=== PATIENT | female | born 1990 | race American Indian/Alaskan Native ===

== ENCOUNTER 2019-09-17 22:15 | Emergency (ER) | payer MEDICAID ==
[2019-09-17] MEDS ORDERED: ACETAMINOPHEN 500 MG TAB PO ONE (22:48)
--- NOTE | 2019-09-17 22:52 | Emergency Department Report ---
ED Female HPI - General Chief complaint: Abdominal Pain Stated complaint: LOWER ABD PAIN LT SIDE 17 WKS PREG Time Seen by Provider: 09/17/19 22:48 Source: patient Mode of arrival: Ambulatory Limitations: No Limitations - History of Present Illness Initial comments: Mrs. Saavedra is a 28-year-old female who presents with left lower quadrant pain sharp severe since this morning. She is currently 17 weeks 0 days . Her estimated date of delivery is 02/25/2020. Sharp pain. No change with movement. It is episodic. Last seconds at a time. She took laxative. She thought it was constipation. However the pain is sharp. She is concerned about her baby. She is followed at [facility]. Complaint: pelvic pain, other (left lower quadrant groin pain) -: Gradual, This morning Location: other (left lower quadrant to the left groin) Severity: moderate, severe Severity scale (0 -10): 7 Quality: sharp Consistency: intermittent Improves with: none Worsens with: none Are you Now?: Yes Associated Symptoms: denies other symptoms. denies: vaginal discharge, vaginal bleeding - Related Data Allergies Allergy/AdvReac Type Severity Reaction Status Date / Time No Known Allergies Allergy Unverified 09/17/19 23:22 ED Review of Systems ROS: Stated complaint: LOWER ABD PAIN LT SIDE 17 WKS PREG Other details as noted in HPI Comment: All other systems reviewed and negative Constitutional: denies: fever, malaise Respiratory: denies: shortness of breath Cardiovascular: denies: chest pain Gastrointestinal: denies: nausea, vomiting, diarrhea Genitourinary: denies: urgency, dysuria, frequency, abnormal menses Skin: denies: rash, lesions ED Past Medical Hx - Past Medical History Previous Medical History?: Yes Hx Diabetes: Yes (Type 1) - Surgical History Past Surgical History?: No - Social History Smoking Status: Never Smoker Substance Use Type: None ED Physical Exam - General Limitations: No Limitations General appearance: alert, in no apparent distress, other (rubbing lower abdomen appears uncomfortable) - Head Head exam: Present: atraumatic, normocephalic - Eye Eye exam: Present: normal appearance - ENT ENT exam: Present: mucous membranes moist - Neck Neck exam: Present: normal inspection - Respiratory Respiratory exam: Present: normal lung sounds bilaterally. Absent: respiratory distress, wheezes, rales, rhonchi - Cardiovascular Cardiovascular Exam: Present: regular rate, normal rhythm, normal heart sounds. Absent: systolic murmur, diastolic murmur, rubs, gallop - GI/Abdominal GI/Abdominal exam: Present: soft, distended (gravid), normal bowel sounds. Absent: tenderness, rebound - Extremities Exam Extremities exam: Present: normal inspection - Neurological Exam Neurological exam: Present: alert, oriented X3 - Psychiatric Psychiatric exam: Present: normal affect, normal mood - Skin Skin exam: Present: warm, dry, intact, normal color. Absent: rash ED Course Vital Signs 09/17/19 09/17/19 09/17/19 22:19 22:25 23:22 Temperature 98.6 F 98.6 F Pulse Rate 74 Respiratory 18 16 Rate Blood Pressure 116/73 O2 Sat by Pulse 100 Oximetry ED Medical Decision Making - Radiology Data Radiology results: report reviewed Ultrasound revealed single living intrauterine sonographic age 17 weeks and 2 days no abnormality seen - Medical Decision Making Mrs. Saavedra presents with left lower quadrant pelvic pain for the past 14 hours. Viable IUP seen on ultrasound. Differential diagnosis includes ovarian cyst, round ligament pain. I do not suspect ovarian torsion. I do not suspect PID. Recommended Tylenol heat. She'll follow-up with her personal open die inspector this week. Critical care attestation.: If time is entered above; I have spent that time in minutes in the direct care of this critically ill patient, excluding procedure time. ED Disposition Clinical Impression: Abdominal pain during in second trimester Disposition: DC-01 TO HOME OR SELFCARE Is pt being admited?: No Does the pt Need Aspirin: No Condition: Stable Instructions: Abdominal Pain in (ED) Referrals: PRIMARY CARE, [Primary Care Provider] - 2-3 Days Forms: Work/School Release Form(ED)
--- NOTE | 2019-09-17 23:52 | Ultrasound Report ---
ULTRASOUND OBSTETRIC INDICATION / CLINICAL INFORMATION: llq pelvic pain 17 week . Clinical Gestational Age (GA): 17 weeks 0 days TECHNIQUE: Transabdominal. COMPARISON: None available. FINDINGS: There is a single intrauterine . Biparietal Diameter = 3.51 cm = 16 weeks, 6 day(s). Head Circumference = 14.1 cm = 17 weeks, 3 day(s). Abdominal Circumference = 11.9 cm = 17 weeks, 4 day(s). Femur Length = 2.47 cm = 17 weeks, 3 day(s). Average Ultrasound Age (AUA) = 17 weeks, 2 day(s). Heart Rate: 152 beats per minute. Estimated Weight in grams (if calculated): 192 g Estimated Weight Growth Percentile (if calculated): Position: cephalic. Cervix: closed. Length in cm (if measured): 3.8 Placenta: anterior and free of the os. Amniotic Fluid Volume: normal Amniotic Fluid Index (RUY) in cm (if calculated): . Maternal Adnexa: No significant abnormality. IMPRESSION: 1. Single, living intrauterine with estimated sonographic age of 17 weeks, 2 day(s). This is consistent with clinical gestational age. 2. No significant sonographic abnormality. Signer Name: Calvin Marie MD Signed: 09/17/2019 11:48 PM Workstation Name: [id number]
[2019-09-18 01:22] VITALS: BP 115/70
== END 2019-09-18 01:25 | disposition home or self-care (01) ==
LOC: ED 22:15
DX: O26.892 Other specified pregnancy related conditions, second trimester (principal); R10.2 Pelvic and perineal pain; O24.012 Pre-existing type 1 diabetes mellitus, in pregnancy, second trimester; Z3A.17 17 weeks gestation of pregnancy
CPT/HCPCS: 76805

== ENCOUNTER 2019-12-15 10:05 | Outpatient (CLI) | payer MEDICAID ==
[2019-12-15 10:30] VITALS: BP 106/69
[2019-12-15 11:07] LABS: Bacteria,Urine 1+ /HPF (Negative); Bilirubin,Urine NEG (Negative); Blood,Urine NEG (Negative); Color,Urine Yellow (Yellow); Mucus,Urine FEW /HPF; Protein,Urine <15 mg/dL mg/dL (Negative); Urobilinogen,Urine < 2.0 mg/dL (<2.0)
[2019-12-15] MEDS ORDERED: LACTATED RINGERS 500 ML IV ONE (11:30)
== END 2019-12-15 11:22 | disposition home or self-care (01) ==
LOC: TRG 10:05
PROVIDERS: ATTEND Obstetrics & Gynecology
DX: O26.893 Other specified pregnancy related conditions, third trimester (principal); M45.4 Ankylosing spondylitis of thoracic region; E11.9 Type 2 diabetes mellitus without complications; H53.8 Other visual disturbances; Z3A.29 29 weeks gestation of pregnancy
CPT/HCPCS: 81001; 82962

== ENCOUNTER 2019-12-24 10:50 | Outpatient (CLI) | payer MEDICAID ==
[2019-12-24] MEDS ORDERED: LACTATED RINGERS 500 ML IV ONE (10:58)
[2019-12-24 11:23] VITALS: BP 106/59
[2019-12-24 12:02] LABS: Bacteria,Urine 1+ /HPF (Negative); Bilirubin,Urine NEG (Negative); Blood,Urine NEG (Negative); Color,Urine Yellow (Yellow); Mucus,Urine FEW /HPF; Protein,Urine <15 mg/dL mg/dL (Negative); Urobilinogen,Urine < 2.0 mg/dL (<2.0)
[2019-12-24] MEDS ORDERED: ACETAMINOPHEN 500 MG TAB PO ONE (12:16)
== END 2019-12-24 14:47 | disposition home or self-care (01) ==
LOC: TRG 10:50
PROVIDERS: ATTEND Obstetrics & Gynecology
DX: O62.9 Abnormality of forces of labor, unspecified (principal); O24.013 Pre-existing type 1 diabetes mellitus, in pregnancy, third trimester; Z3A.31 31 weeks gestation of pregnancy
CPT/HCPCS: 81001; 87086; J7120; 96360

== ENCOUNTER 2019-12-27 15:12 | Observation (INO) | payer MEDICAID ==
[2019-12-27] MEDS ORDERED: LACTATED RINGERS 500 ML IV ONE (16:45)
[2019-12-27 19:41] LABS: Basophils # (Auto) 0.1 K/mm3 (0.0-0.1); Basophils % (Auto) 0.5 % (0.0-1.8); Eosinophils # (Auto) 0.1 K/mm3 (0.0-0.4); Eosinophils % (Auto) 0.4 % (0.0-4.3); Hematocrit 30.3 % (30.3-42.9); Hemoglobin 10.2 gm/dl (10.1-14.3); Lymphocytes # (Auto) 1.2 K/mm3 (1.2-5.4); Lymphocytes % (Auto) 10.2 % (13.4-35.0); Mean Corpuscular HGB Conc 34 % (30-34); Mean Corpuscular Volume 85 fl (79-97); Monocytes # (Auto) 0.7 K/mm3 (0.0-0.8); Monocytes % (Auto) 5.9 % (0.0-7.3); Platelet Count 282 K/mm3 (140-440); Red Blood Count 3.58 M/mm3 (3.65-5.03); Red Cell Distribution Width 13.1 % (13.2-15.2)
[2019-12-27] MEDS ORDERED: DEXTROSE 50% IN WATER (25GM) 50 ML SYRINGE IV PRN ×2 (20:02→20:38)
--- NOTE | 2019-12-27 20:06 | Ultrasound Report ---
THIRDTRIMESTER COMPLETE OBSTETRIC ULTRASOUND WITH BIOPHYSICAL PROFILE HISTORY: Decreased movement, possible rupture of membranes. Clinical gestational age 31 weeks 3 days COMPARISON: Obstetric ultrasound 09/17/2019 TECHNIQUE: Routine complete OB ultrasound performed with biophysical profile. FINDINGS: Gestation: Garcias intrauterine fetus. Placenta: Fundal location and free of the internal cervical os. Presentation: Cephalic Amniotic Fluid Index: 15.9 cm ANATOMY: Heart: Normal four chamber view. Cardiac activity is 158 beats per minute. Stomach: Normal Kidneys: Normal Cord: Three vessel cord insertion: Normal Bladder: Normal Spine:Suboptimal evaluation. Intracranial structures: Normal BIOMETRY: Biparietal diameter: 7.9 cm corresponding to31 weeks 5 days Head circumference: 27.4 cmcorresponding to29 weeks 6 days Abdominal circumference: 29.2 cmcorresponding to33 weeks 1 day Femur length: 6.0 cmcorresponding to31 week 1 day Estimated weight: 1906 grams. Estimated gestational age based on today's measurements: 31 weeks 3 days BIOPHYSICAL PROFILE: Movement: 2 Tone: 2 Breathin Amniotic Fluid: 2 Total: 6 out of 8 Other: A fundal fibroid is seen measuring up to 10.1 x 7.8 x 7.9 cm. IMPRESSION 1. Single living intrauterine at approximately 31 weeks 3 days. 2. Biophysical Profile 6 out of 8. 3. Fundal uterine fibroid. Signer Name: Micaela Cooper MD Signed: 12/27/2019 8:02 PM Workstation Name: [id number]
--- NOTE | 2019-12-27 20:25 | History and Physical Report ---
History of Present Illness Date of examination: 12/27/19 (pt presented to Triage with c/o DFM; concerns @ [facility] clear fluid that was + Nitrazine) Date of admission: 12/27/19 15:13 Chief complaint: DFM History of present illness: EDC Confirmation: 02/25/2020 Gestational Age: 7 3/7 weeks Past History : 2 Term Births: 1 Premature Births: 0 Living Children: 1 Para: 1 Mult. Births: 0 Prev : 0 Aborta: 0 Elect. Ab: 0 Spont. Ab: 0 Ectopics: 0 # 1 Delivery date: 2008 Weeks Gestation: term labor: no Delivery type: Anesthesia type: none Delivery location: [place] Infant Sex: Female weight: 7#7 Past Medical History: Diabetes - IDDM type 1 dx 2012, managed by Dr. Mack Past Surgical History: Negative Past Surgical History Past Medical History Diabetes: yes Surgery (Non-medical assistant ob gyn): Negative Past Surgical History Abnormal PAP: negative Medical History Comments: last pap 10/2018 per patient Family Hx: no known family health hx no known family hx cancer Social Hx: single no ETOH/Drugs/Smoking Career Placement Specialist for [employer] Infection History Hx of STD: none HIV Risk Eval: low risk Hepatitis B Risk Eval: low risk Varicella/Chicken Pox Status: Previous Disease Genetic History Congenital Heart Defect: Mom: no Dad: no Araceli Disease: Mom: no Dad: no Thalassemia Mom: no Dad: no Neural Tube Defect Mom: no Dad: no Down's Syndrome Mom: no Dad: no Maciej-Sachs Mom: no Dad: no Sickle Cell Disease/Trait Mom: no Dad: no Hemophilia Mom: no Dad: no Muscular Dystrophy Mom: no Dad: no Cystic Fibrosis Mom: no Dad: no Meriwether Chorea Mom: no Dad: no Mental Retardation Mom: no Dad: no Fragile X Mom: no Dad: no Other Genetic/Chromosomal Disorder Mom: no Dad: no Child w/other defect Mom: no Dad: no Enviromental Exposures Xray Exposure: no Medication, drug, or alcohol use since LMP: no Chemical/Other Exposure: no Exposure to Cat Liter: no Occupational Exposure to Children: none Current Allergies: No known allergies Past History Family/Genetic History: diabetes - Obstetrical History Expected Date of Delivery: 02/25/20 Actual Gestation: 31 Week(s) 3 Day(s) : 2 Para: 1 Hx # Term Pregnancies: 1 Number of Pregnancies: 0 Spontaneous Abortions: 0 Induced : 0 Number of Living Children: 1 Medications and Allergies Allergies Allergy/AdvReac Type Severity Reaction Status Date / Time No Known Allergies Allergy Verified 12/24/19 10:58 Home Medications Medication Instructions Recorded Confirmed Last Taken Type HumuLIN N 12/15/19 1 Day Ago History ~12/26/19 Insulin Lispro [Admelog Solostar] 12/27/19 1 Day Ago History ~12/26/19 Active Meds: Active Medications Dextrose (D50w (25gm) Syringe) 50 ml IV Q30MIN PRN; Protocol PRN Reason: Hypoglycemia Insulin Human Regular (Humulin R) 0 units SUB-Q AC QUENTIN; Protocol - Vital Signs Vital signs: Vital Signs Pulse Pulse Ox 95 H 100 12/27/19 15:21 12/27/19 15:21 Temp Pulse Resp BP Pulse Ox 98.8 F 86 16 108/68 100 12/27/19 18:46 12/27/19 19:30 12/27/19 18:46 12/27/19 19:30 12/27/19 17:27 - Physical Exam Breasts: Positive: deferred Cardiovascular: Regular rate, Normal S1, Normal S2 Lungs: Positive: Clear to auscultation Abdomen: Positive: normal appearance, soft, normal bowel sounds. Negative: distention, tenderness Genitourinary (Female): Positive: normal external genitalia Vulva: both: normal Vagina: Positive: normal moisture. Negative: discharge Cervix: Negative: lesion, discharge Uterus: Positive: normal size, normal contour Adnexa: both: normal Anus/Rectum: Positive: normal perianal skin, heme negative. Negative: rectal mass, hemorrhoids Extremities: Positive: normal Deep Tendon Reflex Grade: Normal +2 - Obstetrical FHR: category 2 (occas. variables noted) Uterine Contraction Monitor Mode: External Cervical Dilatation: 0 (pt very sensitive with exam; jumps with touch) Uterine Contraction Pattern: Irregular Uterine Tone Measurement Phase: Resting Uterine Contraction Intensity: Mild Results Result Diagrams: 12/27/19 19:22 12/27/19 19:22 Abnormal lab results 12/27/19 12/27/19 Range/Units 19:22 19:22 WBC 12.0 H (4.5-11.0) K/mm3 RBC 3.58 L (3.65-5.03) M/mm3 RDW 13.1 L (13.2-15.2) % Lymph % (Auto) 10.2 L (13.4-35.0) % Seg Neutrophils % 83.0 H (40.0-70.0) % Seg Neutrophils # 10.0 H (1.8-7.7) K/mm3 Creatinine 0.3 L (0.7-1.2) mg/dL All other labs normal. HBsAg Screen Negative Negative *1 RPR Non Reactive Non Reactive *2 Rubella Antibodies, IgG 8.05 index Immune >0.99 *3 Non-immune <0.90 Equivocal 0.90 - 0.99 Immune >0.99 ABO Grouping B *4 Rh Factor Positive *5 Please note: Prior records for this patient's ABO / Rh type are not available for additional verification. Antibody Screen Negative Negative *6 WBC 5.8 x10E3/uL 3.4-10.8 *7 RBC 4.41 x10E6/uL 3.77-5.28 *8 Hemoglobin 12.0 g/dL 11.1-15.9 *9 Hematocrit 37.4 % 34.0-46.6 *10 MCV 85 fL 79-97 *11 MCH 27.2 pg 26.6-33.0 *12 MCHC 32.1 g/dL 31.5-35.7 *13 RDW [H] 15.5 % 12.3-15.4 *14 Platelets 319 x10E3/uL 150-450 *15 Neutrophils 63 % Not Estab. *16 Lymphs 29 % Not Estab. *17 Monocytes 6 % Not Estab. *18 Eos 1 % Not Estab. *19 Basos 1 % Not Estab. *20 ! Immature Cells <No Reported Value> *21 Neutrophils (Absolute) 3.7 x10E3/uL 1.4-7.0 *22 Lymphs (Absolute) 1.7 x10E3/uL 0.7-3.1 *23 Monocytes(Absolute) 0.4 x10E3/uL 0.1-0.9 *24 Eos (Absolute) 0.1 x10E3/uL 0.0-0.4 *25 Baso (Absolute) 0.0 x10E3/uL 0.0-0.2 *26 ! Immature Granulocytes 0 % Not Estab. *27 ! Immature Grans (Abs) 0.0 x10E3/uL 0.0-0.1 *28 ! NRBC <No Reported Value> *29 Hematology Comments: <No Reported Value> *30 Tests: (2) Hemoglobin A1c ([id number]) ! Hemoglobin A1c [H] 8.3 % 4.8-5.6 *31 Prediabetes: 5.7 - 6.4 Diabetes: >6.4 Glycemic control for adults with diabetes: <7.0 Tests: (3) HB Solu + Rflx Frac ([id number]) Hemoglobin (Hgb) Solubility Negative Negative *32 Assessment and Plan Initial cervical /speculum evaluation was negative for pooling This exam was around 1999. Pt called out with another episode of leaking fluid. There was visualization of urine coming from the urethra. Nitrazine did turn blue. Mathews cath placed. Second US done RUY 16. Second speculum exam Negtive pooling discharge noted what appears to be cervical ectropion. Slide made taken to the lab. After 10 min of reviewing slide negative ferning, red cells noted, WBC tntc. Note written @ 2210 29yo G 2P1 @ 31 weeks with c/o DFM then after arrival possible ROM. Consulted with Dr Lamas made aware of all my findings and concerns. Gave pt results of testing. She agrees to POC Observation overnight Repeat BPP and RUY in the AM All questions addressed. - Patient Problems (1) 31 to 32 weeks gestation of Onset Date: ~12/27/19 Current Visit: Yes Status: Acute Plan to address problem: Discussed case with Dr Lamas Will observe pt overnight and repeat BPP and RUY in the AM. (2) IDDM (insulin dependent diabetes mellitus) Onset Date: ~12/27/19 Current Visit: Yes Status: Acute Plan to address problem: Confirmed Insulin dose from [facility] report and with pt: Breakfast: Humulin N 30units Admelog = Humalog 20 units Lunch: Admelog 20units Dinner: Admelog 22 units Bedtime: Humulin N 20 units (3) Short cervix Onset Date: ~12/27/19 Current Visit: Yes Status: Acute Plan to address problem: Cervix visualized on exam Appears closed (4) Decreased movement Onset Date: ~12/27/19 Current Visit: Yes Status: Acute Qualifiers: Fetus number: single or unspecified fetus Trimester: third trimester Qualified Code(s): O36.8130 - Decreased movements, third trimester, not applicable or unspecified Plan to address problem: There is variability. The variable decels have resolved with hydration and position chg.
[2019-12-27] MEDS ORDERED: INSULIN NPH, HUMAN 100 UNIT/1 ML SUB-Q SCH (21:00)
--- NOTE | 2019-12-27 22:04 | Ultrasound Report ---
LIMITED OBSTETRIC ULTRASOUND HISTORY: Loss of fluid COMPARISON: Obstetric ultrasound earlier same day TECHNIQUE: Limited OB ultrasound performed. FINDINGS: Limited obstetric ultrasound is performed for amniotic fluid index only. RUY is within normal limits, measuring 16.6 cm. heart rate is 155 bpm. Refer to recently performed obstetric ultrasound for additional findings. IMPRESSION 1. Normal RUY measuring 16.6 cm. 2. Refer to recently performed obstetric ultrasound for additional findings. Signer Name: Micaela Cooper MD Signed: 12/27/2019 9:59 PM Workstation Name: [id number]
[2019-12-28] MEDS ORDERED: LIDOCAINE JELLY (2%) 5 ML TOPICAL TP ONE (00:06)
[2019-12-28] MEDS ORDERED: LACTATED RINGERS 1,000 ML IV SCH (01:00)
[2019-12-28] MEDS ORDERED: INSULIN REGULAR, HUMAN 100 UNITS/1 ML SUB-Q SCH (07:30)
[2019-12-28 07:54] VITALS: BP 114/57
[2019-12-28] MEDS ORDERED: INSULIN NPH, HUMAN 100 UNIT/1 ML SUB-Q SCH (08:00)
[2019-12-28] MEDS ORDERED: INSULIN LISPRO 100 UNIT/ML SUB-Q SCH (08:00)
--- NOTE | 2019-12-28 08:05 | Ultrasound Report ---
ULTRASOUND BIOPHYSICAL PROFILE ULTRASOUND OB LIMITED INDICATION: DFM; leaking fluid TECHNIQUE: Transabdominal ultrasound imaging. COMPARISON: None FINDINGS: breathing movement = 2 Gross body movement = 2 tone = 2 Qualitative amniotic fluid volume = 2 Total biophysical score = 8/8 Amniotic fluid index is 16.8 cm. Presentation is cephalic. heart rate is 144 beats per minute. IMPRESSION: biophysical profile equals 8/8. Signer Name: Yann Hughes Jr, MD Signed: 12/28/2019 8:00 AM Workstation Name: [id number]
--- NOTE | 2019-12-28 08:27 | Discharge Summary ---
Providers - Providers Date of Admission: 12/27/19 15:13 Date of discharge: 12/28/19 (pt desires d/c home) Attending physician: RISIH JEREZ Primary care physician: RISHI JEREZ Hospitalization Reason for admission: monitoring Condition: Good Pertinent studies: repeat RUY increased to 16.8 from 15.9 last night, BPP 8/8 Procedures: observation and repeat bpp/ruy Hospital course: uncomplicated monitoring Disposition: DC-01 TO HOME OR SELFCARE - Discharge Diagnoses (1) False labor before 37 completed weeks of gestation Status: Acute Qualifiers: Trimester: third trimester Qualified Code(s): O47.03 - False labor before 37 completed weeks of gestation, third trimester Core Measure Documentation - Palliative Care Palliative Care/ Comfort Measures: Not Applicable - Core Measures Any of the following diagnoses?: none Exam - Constitutional Vitals: Temp Pulse Resp BP Pulse Ox 98 F 93 H 18 114/57 100 12/28/19 06:25 12/28/19 07:53 12/28/19 06:25 12/28/19 07:53 12/27/19 17:27 General appearance: Present: no acute distress, well-nourished - EENT Eyes: Present: PERRL ENT: hearing intact, clear oral mucosa - Neck Neck: Present: supple, normal ROM - Respiratory Respiratory effort: normal Respiratory: bilateral: CTA - Cardiovascular Heart Sounds: Present: S1 & S2. Absent: rub, click - Extremities Extremities: No edema - Abdominal General gastrointestinal: Present: soft, non-tender, non-distended, normal bowel sounds Female genitourinary: Present: normal - Integumentary Integumentary: Present: clear, warm, dry - Musculoskeletal Musculoskeletal: gait normal, strength equal bilaterally - Psychiatric Psychiatric: appropriate mood/affect, intact judgment & insight - Neurologic Neurologic: CNII-XII intact, moves all extremities Plan Activity: no restrictions Weight Bearing Status: Non-Weight Bearing Follow up with: RISHI JEREZ MD [Primary Care Provider] - 7 Days (Keep scheduled appointments with [facility] and [facility] next week. Call for any leaking, bleeding or decreased movement. )
--- NOTE | 2019-12-28 08:29 | Event Note ---
Date: 12/28/19 pt very anxious to go home, no leaking noted by patient. she has no concerns. [facility] appointment scheduled 01/01 and with [facility] 01/02. Will send UA and culture d/t leaking urine and call patient if treatment is needed. pt agrees with plan, all questions addressed. She reports having all the supplies needed to manage her diabetes. again, encouraged pt to call office with any questions or concerns.
[2019-12-28 08:51] LABS: Bilirubin,Urine NEG (Negative); Blood,Urine MOD (Negative); Color,Urine Yellow (Yellow); Protein,Urine <15 mg/dL mg/dL (Negative); Urobilinogen,Urine < 2.0 mg/dL (<2.0)
== END 2019-12-28 09:00 | disposition home or self-care (01) ==
LOC: TRG 15:12 → LD 15:13 → TRG 15:13
PROVIDERS: ADMIT Obstetrics & Gynecology; ATTEND Obstetrics & Gynecology
DX: O36.8130 Decreased fetal movements, third trimester, not applicable or unspecified (principal); O47.03 False labor before 37 completed weeks of gestation, third trimester; O26.873 Cervical shortening, third trimester; O24.013 Pre-existing type 1 diabetes mellitus, in pregnancy, third trimester; Z96.41 Presence of insulin pump (external) (internal); Z3A.37 37 weeks gestation of pregnancy
CPT/HCPCS: 36415; 76805; 76815; 76819; 81001; 82565; 82962; 83036; 85025; 86850; 86900; 86901; 87086; 96372; G0378; J7120; J1815